=== PATIENT | female | born 1995 | race Two or more races ===

== ENCOUNTER 2017-08-21 23:38 | Emergency (ER) | END 2017-08-22 05:50 | disposition home or self-care (01) ==

== ENCOUNTER 2019-04-19 17:12 | Emergency (ER) | payer SELFPAY ==
[~2019-04-19] VITALS: Ht 165.1 cm; Wt 52.7 kg
[~2019-04-19 17:12] MED LIST: FOL8 PO; PREN-47 PO
[2019-04-19 17:22] VITALS: Ht 165.1 cm; Wt 52.7 kg
[2019-04-19] MEDS ORDERED: KETOROLAC 30 MG INJ IV STA (17:40)
[2019-04-19] MEDS ORDERED: SOD CHLORIDE 0.9% 1,000 ML IV STA ×2 (17:40→18:30)
[2019-04-19 20:20] VITALS: BP 115/64; PULSE 87; RESP 18
== END 2019-04-19 20:23 | disposition home or self-care (01) ==
LOC: E/R 17:12
DX: R55 Syncope and collapse (principal)
CPT/HCPCS: 36415; 70450; 80053; 82150; 83690; 84703; 85025; 93005; 96361; 96374; 99285; J1885; J7030